=== PATIENT | male | born 1960 | race Caucasian/White ===

== ENCOUNTER 2025-02-07 05:55 | Day surgery (SDC) | payer OTHER, MEDICARE ==
[~2025-02-07] VITALS: Ht 170.2 cm; Wt 102.7 kg
[2025-02-07] MEDS ORDERED: RINGERS SOLUTION,LACTATED 1,000 ML IV ONE ×2 (06:30→07:19)
[2025-02-07 07:34] LABS: PLATELET COUNT (AUTO) 244 K/uL (150-450); RED BLOOD CELL COUNT(AUTO) 5.62 MIL/uL (4.50-5.90); RED CELL DISTRIBUTION WIDTH 18.7 % (11.5-14.5); WHITE BLOOD COUNT (AUTO) 13.4 K/uL (4.5-11.0)
[2025-02-07 07:41] LABS: CALCIUM, TOTAL 9.7 mg/dL (8.8-10.5); CREATININE 0.57 mg/dL (0.60-1.30); GLOMERULAR FILTR. RATE CALC > 60 mL/min (>60); GLUCOSE,RANDOM 152 mg/dL (70-110); SODIUM SERUM 132 mmol/L (136-145); UREA NITROGEN, BLOOD 14 mg/dL (7-18)
[2025-02-07] MEDS ORDERED: NIFE-46 PO (07:42)
[2025-02-07] MEDS ORDERED: MULT-503 PO (07:42)
[2025-02-07] MEDS ORDERED: CALC-789 PO (07:42)
[2025-02-07] MEDS ORDERED: METF-910 PO (07:42)
[2025-02-07] MEDS ORDERED: FLUT16SP NASAL (07:42)
[2025-02-07] MEDS ORDERED: DIAZ-328 PO (07:42)
[2025-02-07] MEDS ORDERED: DULO30CA62 PO (07:42)
[2025-02-07] MEDS ORDERED: LORA10TA7 PO (07:42)
[2025-02-07] MEDS ORDERED: HYDR50TA36 PO ×2 (07:42→07:43)
[2025-02-07] MEDS ORDERED: MIRA50TA PO (07:42)
[2025-02-07] MEDS ORDERED: FERR325T27 PO (07:42)
[2025-02-07] MEDS ORDERED: ASCO500 PO (07:42)
[2025-02-07] MEDS ORDERED: LUBI24CA40 PO (07:43)
[2025-02-07] MEDS ORDERED: [UNRECOGNIZED DRUG - CODE] PO (07:43)
[2025-02-07] MEDS ORDERED: HYDR-4072 PO (07:43)
[2025-02-07] MEDS ORDERED: LACT10SO85 PO (07:43)
[2025-02-07 07:47] LABS: ASPARTATE AMINOTRANSFERASE 19 U/L (15-37); TOTAL PROTEIN, SERUM 8.5 g/dL (6.4-8.2)
[2025-02-07] MEDS ORDERED: AMPICILLIN SODIUM 2 GM/NS 0 ML IV ONE (08:10)
== END 2025-02-07 11:45 | disposition home or self-care (01) ==
LOC: SURGERY 05:55
PROVIDERS: ATTEND Dentist General Practice
DX: K05.30 Chronic periodontitis, unspecified (principal); Z53.8 Procedure and treatment not carried out for other reasons; I10 Essential (primary) hypertension; E11.9 Type 2 diabetes mellitus without complications; E78.5 Hyperlipidemia, unspecified; K21.9 Gastro-esophageal reflux disease without esophagitis; Z79.4 Long term (current) use of insulin; Z79.899 Other long term (current) drug therapy; Z90.5 Acquired absence of kidney; Z96.642 Presence of left artificial hip joint; Z98.890 Other specified postprocedural states; Z91.018 Allergy to other foods; Z88.8 Allergy status to other drugs, medicaments and biological substances
CPT/HCPCS: 71045; 80053; 85025; 85610; 85730; 36415; 93005; J7120; J0290